=== PATIENT | male | born 1955 | race Caucasian/White ===

== ENCOUNTER 2020-06-30 17:40 | Emergency (ER) | payer OTHER ==
--- NOTE | 2020-06-30 18:22 | EDM.PDOC ---
<Delma Bright - Last Filed: 06/30/20 18:15> ED HPI GENERAL MEDICAL PROBLEM - General Chief Complaint: Skin Complaint Stated Complaint: INFECTION IN LEFT LEG, CELLULITUS Time Seen by Provider: 06/30/20 18:04 Source of Information: Reports: Patient History Limitations: Reports: No Limitations - History of Present Illness INITIAL COMMENTS - FREE TEXT/NARRATIVE: Patient is a 64 y.o. male, history of Chronic myeloid leukemia, who presents to the ED with c/o a rash on his lower left leg that began today. The patient states he did not feel well yesterday, reports feeling feverish, chills, headache, and fatigue and took Tylenol yesterday with good relief. Patient developed a rash this morning on his lower left baron and noticed it was quickly spreading throughout the day. On arrival to the ED, the rash had started to spread to his upper medial thigh. He reports chills, swelling and pain in his left left leg with ambulation. He took two 650 mg Tylenol tablets 3-4 hours ago. He denies headaches, vision changes, SOB, cough, chest pain, or changes in bowel or urinary habits. Patient had cellulitis of the left leg approximately a year ago, was MRSA negative. Allergies to sulfa antibiotics. Onset: Other (yesterday ) Duration: Getting Worse Location: Reports: Lower Extremity, Left Improves with: Reports: None Worsens with: Reports: None Associated Symptoms: Reports: Fever/Chills, Nausea/Vomiting Treatments BEARING GRINDER: Reports: Acetaminophen - Related Data Allergies Allergy/AdvReac Type Severity Reaction Status Date / Time Sulfa (Sulfonamide Allergy Hives Verified 06/30/20 17:58 Antibiotics) Past Medical History Cardiovascular History: Reports: Hypertension Musculoskeletal History: Reports: Arthritis Oncologic (Cancer) History: Reports: Leukemia, Other (See Below) Other Oncologic History: CML on chemo Dermatologic History: Reports: Cellulitis Social & Family History - Tobacco Use Tobacco Use Status *Q: Never Tobacco User - Alcohol Use Days Per Week of Alcohol Use: 3 Number of Drinks Per Day: 3 Total Drinks Per Week: 9 - Recreational Drug Use Recreational Drug Use: No ED ROS GENERAL - Review of Systems Review Of Systems: Comprehensive ROS is negative, except as noted in HPI. ED EXAM, SKIN/RASH Exam: See Below Exam Limited By: No Limitations General Appearance: Alert, WD/WN, No Apparent Distress Eye Exam: Bilateral Eye: EOMI, Normal Inspection Throat/Mouth: Normal Inspection, Normal Lips, Normal Teeth, Normal Gums, Normal Oropharynx, Normal Voice, No Airway Compromise Head: Atraumatic, Normocephalic Neck: Normal Inspection, Supple, Non-Tender, Full Range of Motion Respiratory/Chest: No Respiratory Distress, Lungs Clear, Normal Breath Sounds, No Accessory Muscle Use, Chest Non-Tender Cardiovascular: Normal Peripheral Pulses, Regular Rate, Rhythm, No Edema, No Gallop, No JVD, No Murmur, No Rub Peripheral Pulses: 3+: Posterior Tibial (L), Posterior Tibial (R), Dorsalis Pedis (L), Dorsalis Pedis (R) GI/Abdominal: Normal Bowel Sounds, Soft, Non-Tender, No Organomegaly, No Distention, No Abnormal Bruit, No Mass (Male) Exam: Deferred Rectal (Males) Exam: Deferred Back Exam: Normal Inspection, Full Range of Motion, NT Extremities: Normal Range of Motion, Normal Capillary Refill, Leg Pain (left sided leg pain with ambulation, onset with skin infection; mild tenderness of lower left extremity. ), Increased Warmth (lower left extremity), Other (lower left extremity is mildy edenematous below the knee) Neurological: Alert, Oriented, CN II-XII Intact, Normal Cognition, Normal Gait, Normal Reflexes, No Motor/Sensory Deficits Psychiatric: Normal Affect, Normal Mood Skin: Warm, Dry, Intact, Increased Warmth, Rash Location, Skin: Lower Extremity, Left Characteristics: Petechial (rash on the patient's anterior left lower leg; with erythematous rash along the medial upper thigh) Departure - Departure Disposition: Home, Self-Care 01 Clinical Impression: Cellulitis and abscess of left leg - Discharge Information Instructions: Cellulitis, Adult, [id number] Forms: ED Department Discharge Additional Instructions: Encourage patient to push fluids, Tylenol and ibuprofen as needed for discomfort and finish antibiotic treatment. Also recommended that patient eats yogurt to add antibiotic treatment. Follow-up with PCP in clinic next week or return to the ER if symptoms worsen. Patient verbalized understanding. Sepsis Event Note (ED) - Evaluation Sepsis Screening Result: Possible Sepsis Risk <Roxanne Jordan - Last Filed: 06/30/20 20:21> Course - Re-Assessments/Exams Free Text/Narrative Re-Assessment/Exam: Report received from JAY Lewis. Reviewed exam findings and labs with patient. Initiated Rocephin 2 g IV with Rx for clindamycin given to patient. Encourage patient to administer antibiotics and eat yogurt throughout the course of antibiotic therapy. Patient verbalized understanding. Departure - Departure Time of Disposition: 20:21 Condition: Fair <Shimon Aguero - Last Filed: 07/01/20 07:19> Course - Vital Signs Last Recorded V/S: Last Vital Signs Temp 37.2 C 06/30/20 20:06 Pulse 100 06/30/20 20:06 Resp 19 06/30/20 20:06 BP 109/69 06/30/20 20:06 Pulse Ox 96 06/30/20 20:06 - Orders/Labs/Meds Orders: Active Orders 24 hr Category Date Time Status CULTURE BLOOD [BC] Stat Lab 06/30/20 18:18 Received CULTURE BLOOD [BC] Stat Lab 06/30/20 18:24 Received Blood Culture x2 Reflex Set [OM.PC] Stat Oth 06/30/20 18:08 Ordered Labs: Laboratory Tests 06/30/20 06/30/20 06/30/20 Range/Units 18:24 18:24 18:24 WBC 13.6 H (5.0-10.0) 10^3/uL RBC 4.12 L (4.6-6.2) 10^6/uL Hgb 13.6 L (14.0-18.0) g/dL Hct 38.7 L (40.0-54.0) % MCV 93.9 (80-100) fL MCH 33.0 (27.0-34.0) pg MCHC 35.1 H (33.0-35.0) g/dL Plt Count 197 (150-450) 10^3/uL Neut % (Auto) 88.8 H (42.2-75.2) % Lymph % (Auto) 7.9 L (20.5-50.1) % [place] % (Auto) 3.0 (2-8) % Eos % (Auto) 0.1 L (1.0-3.0) % Baso % (Auto) 0.2 (0.0-1.0) % Sodium 137 (136-145) mmol/L Potassium 3.5 (3.5-5.1) mmol/L Chloride 102 (98-107) mmol/L Carbon Dioxide 24 (21-32) mmol/L Anion Gap 14.5 H (7-13) mEq/L BUN 35 H (7-18) mg/dL Creatinine 2.31 H (0.70-1.30) mg/dL Est Cr Clr Drug Dosing 33.16 mL/min Estimated GFR (MDRD) 29 BUN/Creatinine Ratio 15.2 (No establ ref range) Glucose 128 H (74-99) mg/dL Lactic Acid 0.7 (0.4-2.0) mmol/L Calcium 9.1 (8.5-10.1) mg/dL Total Bilirubin 1.4 H (0.2-1.0) mg/dL AST 16 (15-37) U/L ALT 29 (16-63) U/L Alkaline Phosphatase 53 (46-116) U/L Total Protein 7.1 (6.4-8.2) g/dL Albumin 3.4 (3.4-5.0) g/dL Globulin 3.7 Albumin/Globulin Ratio 0.9 Meds: Medications Discontinued Medications Generic Name Dose Route Start Last Admin Trade Name Freq PRN Reason Stop Dose Admin Ceftriaxone Sodium 2 gm/ 100 mls @ 2,000 mls/hr 06/30/20 19:16 06/30/20 19:30 Sodium Chloride IV 06/30/20 19:18 200 mls/hr ONETIME ONE Administration - Re-Assessments/Exams Free Text/Narrative Re-Assessment/Exam: 07/01/20 07:18 I have examined the patient. I have discussed findings and treatment plan with the PA student. I agree with the assessment and plan in the following students note. Sepsis Event Note (ED) - Focused Exam Vital Signs: Vital Signs Temp Pulse Resp BP Pulse Ox 06/30/20 20:06 37.2 C 100 19 109/69 96
[2020-06-30 18:51] LABS: ANION GAP 14.5 mEq/L (7-13)
[2020-06-30] MEDS ORDERED: cefTRIAXone 2 GM in Sodium Chloride 0.9% 100 ML IV ONE (19:16)
== END 2020-06-30 20:06 | disposition home or self-care (01) ==
LOC: DL.ED 17:40
DX: L03.116 Cellulitis of left lower limb (principal); L02.416 Cutaneous abscess of left lower limb; I10 Essential (primary) hypertension; Z85.6 Personal history of leukemia; Z88.2 Allergy status to sulfonamides
CPT/HCPCS: 36415; 80053; 83605; 85025; 87040; 96365; 99283; J0696